=== PATIENT | female | born 1970 | race Caucasian/White ===

== ENCOUNTER 2017-02-26 16:04 | Emergency (ER) | payer OTHER ==
[~2017-02-26] VITALS: Ht 177.8 cm; Wt 87.5 kg
[~2017-02-26 16:04] MED LIST: LISI-329 PO; METF500T4 PO; NAPR-688 PO
[2017-02-26 16:11] VITALS: Ht 177.8 cm; Wt 87.5 kg
[2017-02-26] MEDS ORDERED: KETOROLAC 60 MG INJ IM STA (16:37)
--- NOTE | 2017-02-26 16:37 | ERD ---
ER Documentation Chief Complaint Date/Time DATE: 02/26/17 TIME: 16:28 Chief Complaint Complains of swelling to both extremities after insect bite HPI 46-year-old female presents emergency department for complaints of swelling to bilateral lower extremity. Stated that she was at a restaurant in [place] , last Monday at around 10 PM "when mosquitoes bit my legs. It was itchy at first. I did not use my EpiPen although I noted I have allergies to bee stings because I am not sure if it has been a work. Came back here in [place] last Monday morning. My lower extremity swelling tremendously in the last 24 hours. My mom told me to come to the emergency department to be evaluated. Denies headache, loss of consciousness, dizziness, blurry vision, changes in vision, photophobia, facial pain, ear pain, throat pain, difficulty swallowing, neck pain, shoulder pain, chest pain, cough, shortness of breath, difficulty breathing while lying flat, hemoptysis, abdominal pain, back pain, loss of appetite, nausea, vomiting, hematochezia, diarrhea, constipation, urinary symptoms, , the possibility of being , bladder and bowel incontinences, extremity weakness, numbness or tingling sensation, direct trauma, injury, falls, recent exposure to illness, recent antibiotic use in the last 3 months, fever, chills. Allergy: Bee sting, benzyl peroxide, codeine, nifedipine. PMH: Hypertension, type 2 diabetes. Family medical history: Denies. A1 LMP: February 21, 2017. Medications: Metformin. Surgery: Appendectomy. Primary Social History: Not working at this time. Smokes 1 pack of cigarettes a day. Denies use of alcohol, use of illegal drugs. ROS All systems reviewed and are negative except as per history of present illness. Medications Home Meds Active Scripts Hydrocodone/Acetaminophen ([place] 5-325 Tablet) 1 Each Tablet, 1 TAB PO Q6H Y for PAIN, #15 TAB Prov:ALVARO GRESHAM 02/26/17 Naproxen* (Naproxen*) 500 Mg Tablet, 500 MG PO BID Y for PAIN, #20 TAB Prov:PASILABANALVARO 02/26/17 Cephalexin* (Keflex*) 500 Mg Capsule, 500 MG PO TID for 7 Days, CAP Prov:PASILABANALVARO 02/26/17 Sulfamethoxazole/Trimethoprim* (Bactrim Ds* Tablet) 1 Each Tablet, 1 TAB PO BID for 7 Days, #14 TAB Prov:ALVARO GRESHAM 02/26/17 Diphenhydramine Hcl* (Benadryl*) 25 Mg Cap, 25 MG PO Q8 Y for ITCHING/RASH, #30 TAB Prov:ALVARO GRESHAM 02/26/17 Naproxen* (Naproxen*) 500 Mg Tablet, 500 MG PO BID Y for PAIN, #20 TAB Prov:ADIS PARKER DO 01/01/16 Reported Medications Metformin* (Glucophage*) 500 Mg Tab, 500 MG PO WITH BREAKFAST, #30 TAB 01/01/16 Lisinopril-Hydrochlorothiazide (Lisinopril-HCTZ) 20-25 Mg Tab, 1 TAB PO DAILY, # 30 TAB 01/01/16 Allergies Allergies: Coded Allergies: benzoyl peroxide (Verified Allergy, Unknown, hives, 02/26/17) codeine (Verified Allergy, Unknown, hives, 02/26/17) nifedipine (Verified Allergy, Unknown, hives, 02/26/17) Uncoded Allergies: BEE STING (Allergy, Unknown, 02/26/17) PMhx/Soc History of Surgery: Yes (Appendectomy, benign Cyst removal breast Toe surgery) Anesthesia Reaction: No Hx Neurological Disorder: No Hx Respiratory Disorders: No Hx Cardiac Disorders: Yes (HTN) Hx Psychiatric Problems: No Hx Miscellaneous Medical Probl: Yes (DM ) Hx Alcohol Use: No Hx Substance Use: No Hx Tobacco Use: Yes Smoking Status: Current every day smoker Physical Exam Vitals Vital Signs Date Time Temp Pulse Resp B/P Pulse Ox O2 Delivery O2 Flow Rate FiO2 02/26/17 16:11 98.1 95 20 167/96 95 Physical Exam CONSTITUTIONAL: Well-appearing; well-nourished; in no apparent distress. HEAD: Normocephalic; atraumatic. EYES: Conjunctiva clear, sclera non-icteric, EOM intact. PERRL Ears: Hearing intact. EACs clear, TMs non-bulging, non-inflamed, translucent & mobile, ossicles normal appearance, No obstructions, no erythema, no discharges Nose: No obstructions. No polyps. No external lesions. Mucosa non-inflamed. No external lesions, septum and turbinates normal. No rhinorrhea. No discharges. Frontal sinus is non-tender to palpation. Maxillary sinus is non-tender to palpation. MOUTH: Moist mucous membranes, no lesion, no obstructions, no vesicles, no thrush, patent airway Throat: Uvula in midline. Right tonsil is +1 with no erythema, no exudate. Left tonsil is +1 with no erythema, no exudate. Tolerating secretions well. Good gag reflex. Patent airway. Neck: Supple, without lesions, bruits, or adenopathy. No mass. Thyroid non- enlarged and non-tender to palpation. CHEST: Symmetrical chest. Respirations even and not labored. No retractions noted. CARDIOVASCULAR: Normal S1, S2. RRR. No murmurs, gallops. RESPIRATORY: Normal chest excursion with respiration; breath sounds clear and equal bilaterally; no wheezes, rhonchi, or rales. Breathing even and unlabored. Speaking in clear, full, and complete sentences w/ ease. ABDOMEN: Normal bowel sounds normal. Soft, round, non-distended, non-guarding, no tenderness, no rebound, no organomegaly, no masses, no pulsating abdominal mass. No hernia. No peritoneal signs. : No CVA tenderness. BACK: Symmetrical shoulder. Spine is midline without deformity, tenderness. No evidence of trauma or deformity. PELVIS: Stable pelvis. No evidence of trauma or deformity. MUSCULOSKELETAL: Normal gait and station. No misalignment, asymmetry, crepitation, defects, tenderness, masses, effusions, decreased range of motion, instability, atrophy or abnormal strength or tone in the head, neck, spine, ribs , pelvis or extremities. No calf tenderness. Multiple insect bites to lower extremity. Bilateral lower extremity nonpitting edema that is warm to touch. There is no calf tenderness bilaterally. NEUROVASCULAR: Distal pulses are present. Pedal pulse are present, equal, and normal. Capillary refills are < 2 seconds. NEUROLOGIC: Alert and oriented x4. Speaks full and clear sentences. Cranial Nerves II-XII normal. Sensation to pain, touch, and proprioception normal. Grossly unremarkable. No neurologic deficits. Romberg test is negative. PSYCHOLOGICAL: The patients mood and manner are appropriate. No hallucinations , delusions. Not SI. Not HI. Has the capacity to decide for self SKIN: Normal for age and ethnicity; warm; dry; good turgor; no apparent lesions or exudates. No rashes, hives, discoloration. Intact. Multiple insect bites to lower extremity. Bilateral lower extremity nonpitting edema that is warm to touch. There is no calf tenderness bilaterally. Results 24 hrs Current Medications Medications (Trade) Dose Ordered Sig/Kunal Route PRN Reason Start Time Stop Time Status Last Admin Dose Admin Ketorolac Tromethamine (Toradol) 60 mg ONCE STAT IM 02/26/17 16:37 02/26/17 16:38 DC Procedures/MDM Examination: Please see physical examination. Disease process, medical treatment was explained to the patient and family member. They verbalized understanding and agreed with the medical treatment, and follow-up care. POC urine : Treatment: Toradol IM. Re-evaluation: Denies headache, dizziness, blurry vision, neck pain, shoulder pain, chest pain, back pain, abdominal pain, nausea, vomiting. No episode of emesis in the emergency department. Alert and oriented 4. Speaks full and clear sentences. Respirations even and unlabored. Lung sounds clear to auscultation. Active bowel sounds. No peritoneal signs. Ambulatory with steady gait. No neurovascular deficits. No neurological deficits. Stated that she feels much better this time is ready to go home. Consultation: Case was discussed with supervising emergency room physician, Dr. Adis Parker who also examined the patient and agreed in my medical decision making to discharge patient with Bactrim and Keflex Differential diagnosis: Anaphylaxis versus allergic reaction versus hives versus cellulitis versus bacterial skin infection. Medical decision m[age]-year-old female presents emergency department for complaints of swelling to bilateral lower extremity. Stated that she was at a restaurant in [place], last Monday at around 10 PM "when mosquitoes bit my legs. It was itchy at first. I did not use my EpiPen although I noted I have allergies to bee stings because I am not sure if it has been a work. Came back here in [place] last Monday morning. My lower extremity swelling tremendously in the last 24 hours. My mom told me to come to the emergency department to be evaluated. Patient's complaint, patient's history about her complaint, my physical findings, my reevaluation after treatment, my supervising physicians examination are consistent my final diagnosis of cellulitis and allergic reaction secondary to insect bite. Medications prescribed are the following: [place]. Naproxen. Bactrim. Keflex. Benadryl. Patient and family member are made aware of the side effects and adverse reactions of the medications prescribed. Instructed on when to seek emergent and medical attention in case allergic/anaphylactic reactions or severe side effects and or adverse reactions to medications. Patient was also instructed to come back here in the emergency department in 48-72 hours if her present treatment/medications did not take effect. Patient and family member verbalized understanding. Patient instructed Instructed to follow-up with his PCP in 24-48 hours. Instructed to Call 911 for chest pain, shortness of breath. Advised to come back here in ED as soon as possible for severity of symptoms which includes but not limited to: any new symptoms; shortness of breath/difficulty of breathing; cardiovascular changes; severe gastrointestinal symptoms; signs and symptoms of bleeding and or infection; signs of compartment syndrome/neurovascular changes; neurological changes/deficits. Patient and family member verbalized understanding. Upon discharge, patient is alert and oriented x 4, speaks full and clear sentences, denies pain, has no neurological deficits, has no neurovascular deficits, difficulty of breathing. Breathing even and unlabored. Lung sounds are clear to auscultation. Not in distress. Appears comfortable. Ambulatory with steady gait. Appears satisfied with care provided here in ED. Departure Diagnosis: Primary Impression: Cellulitis Additional Impressions: Insect bite Allergic reaction Condition: Stable Additional Instructions: Instructed to follow-up with his PCP in 24-48 hours. Instructed to Call 911 for chest pain, shortness of breath. Advised to come back here in ED as soon as possible for severity of symptoms which includes but not limited to: any new symptoms; shortness of breath/difficulty of breathing; cardiovascular changes; severe gastrointestinal symptoms; signs and symptoms of bleeding and or infection; signs of compartment syndrome/neurovascular changes; neurological changes/deficits. Patient and family member verbalized understanding. ALVARO GRESHAM Feb 26, 2017 16:37
[2017-02-26] MEDS ORDERED: BEN25 PO (16:39)
[2017-02-26] MEDS ORDERED: CEPH-443 PO (16:40)
[2017-02-26] MEDS ORDERED: SULF1TAB31 PO (16:40)
[2017-02-26] MEDS ORDERED: NAPR-688 PO (16:43)
[2017-02-26] MEDS ORDERED: HYDR-906 PO (16:44)
[2017-02-26 23:16] LABS: URINE BLOOD (Dip) POC 2+ (NEGATIVE)
== END 2017-02-26 17:10 | disposition home or self-care (01) ==
LOC: FTE 16:04
DX: L03.115 Cellulitis of right lower limb (principal); L03.116 Cellulitis of left lower limb; S80.862A Insect bite (nonvenomous), left lower leg, initial encounter; F17.210 Nicotine dependence, cigarettes, uncomplicated; I10 Essential (primary) hypertension; E11.9 Type 2 diabetes mellitus without complications; W57.XXXA Bitten or stung by nonvenomous insect and other nonvenomous arthropods, initial encounter; Y92.9 Unspecified place or not applicable; Z79.84 Long term (current) use of oral hypoglycemic drugs
CPT/HCPCS: 81003; 96372; J1885; Z7502

== ENCOUNTER 2018-06-27 05:33 | Inpatient (IN) | END 2018-06-28 15:00 | disposition home or self-care (01) | DRG 578 ==